=== PATIENT | male | born 1995 | race Caucasian/White ===

== ENCOUNTER 2020-05-12 13:42 | Emergency (ER) | payer MEDICAID ==
[~2020-05-12] VITALS: Ht 172.7 cm; Wt 85.0 kg
[2020-05-12] MEDS ORDERED: LIDOcaine Viscous 15ml cup MM STA (15:28)
[2020-05-12] MEDS ORDERED: PENI500T2 PO (15:30)
[2020-05-12 15:42] VITALS: BP 139/96
== END 2020-05-12 15:44 | disposition home or self-care (01) ==
LOC: ER 13:43
DX: J02.9 Acute pharyngitis, unspecified (principal); Z79.899 Other long term (current) drug therapy
CPT/HCPCS: 99283

== ENCOUNTER 2020-07-27 11:03 | Emergency (ER) | payer MEDICAID ==
[~2020-07-27] VITALS: Ht 172.7 cm; Wt 85.3 kg
[2020-07-27] MEDS ORDERED: famotidine/PF 10 mg/ml inj IV ONE (12:15)
[2020-07-27] MEDS ORDERED: pantoprazole 40 MG vial IV ONE (12:15)
[2020-07-27 12:31] LABS: BASOPHILS % (AUTO) 0.2 % (0-1); EOSINOPHILS # (AUTO) 0.3 X10'3 (0-0.9); HEMATOCRIT 47.3 % (42.0-52.0); HEMOGLOBIN 15.7 g/dl (14.0-17.9); LYMPHOCYTES # (AUTO) 2.7 X10'3 (1.1-4.8); LYMPHOCYTES % (AUTO) 42.4 % (21-51); MEAN CORPUSCULAR HEMOGLOBIN 30.1 PG (27.0-31.0); MEAN CORPUSCULAR HGB CONC 33.3 g/dL (33.0-36.5); MEAN CORPUSCULAR VOLUME 90.3 FL (78-98); MEAN PLATELET VOLUME 8.8 FL (7.4-10.4); MONOCYTES # (AUTO) 0.5 X10'3 (0-0.9); MONOCYTES % (AUTO) 8.3 % (2-12); NEUTROPHILS # (AUTO) 2.8 X10'3 (1.8-7.7); NEUTROPHILS % (AUTO) 44.1 % (42-75); PLATELET COUNT 234 X10'3 (140-440); RED BLOOD COUNT 5.23 X10'6 (4.70-6.10); RED CELL DISTRIBUTION WIDTH 13.3 % (11.5-14.5); WHITE BLOOD COUNT 6.3 X10'3 (4.5-11.0)
[2020-07-27 12:45] LABS: ALANINE AMINOTRANSFERASE 17 U/L (12-78); ALBUMIN 3.9 G/DL (3.4-5.0); ALBUMIN/GLOBULIN RATIO 1.3 (1.1-1.5); ALKALINE PHOSPHATASE 95 IU/L (46-116); ANION GAP 5 (8-16); ASPARTATE AMINO TRANSFERASE 19 U/L (10-37); BILIRUBIN,TOTAL 0.5 MG/DL (0.1-1.0); BLOOD UREA NITROGEN 13 MG/DL (7-18); BUN/CREATININE RATIO 12.1 (5.4-32.0); CALCIUM 8.7 MG/DL (8.5-10.1); CHLORIDE 103 MMOL/L (99-107); CREATININE 1.07 MG/DL (0.60-1.10); GLUCOSE 92 MG/DL (70-104); LIPASE 116 U/L (73-393); POTASSIUM 3.3 MMOL/L (3.5-5.1); SODIUM 139 MMOL/L (135-145); TOTAL CARBON DIOXIDE 30.7 MMOL/L (24-32); TOTAL PROTEIN 6.9 G/DL (6.4-8.2); eGFR 84 ML/MIN
[2020-07-27] MEDS ORDERED: potassium Cl 20 mEq SR tablet PO STA (13:00)
[2020-07-27] MEDS ORDERED: SUCR1TAB34 PO (13:01)
[2020-07-27] MEDS ORDERED: OMEP20CA15 PO (13:01)
[2020-07-27] MEDS ORDERED: FAMO20TA44 PO (13:01)
[2020-07-27 13:24] VITALS: BP 121/83
== END 2020-07-27 13:26 | disposition home or self-care (01) ==
LOC: ER 11:04
DX: K29.70 Gastritis, unspecified, without bleeding (principal); Z79.899 Other long term (current) drug therapy
CPT/HCPCS: 36415; 80053; 83690; 84484; 85025; 93005; 96374; 96375; 99284; C9113; J3490

== ENCOUNTER 2020-08-02 11:17 | Emergency (ER) | payer MEDICAID ==
[~2020-08-02] VITALS: Ht 175.3 cm; Wt 85.5 kg
[~2020-08-02 11:17] MED LIST: FAMO20TA44 PO; OMEP20CA15 PO; SUCR1TAB34 PO
[2020-08-02 11:30] VITALS: BP 121/77
[2020-08-02] MEDS ORDERED: EMTR1TAB12 PO (12:42)
[2020-08-02] MEDS ORDERED: RALT400T PO (12:42)
[2020-08-02 13:10] LABS: ALBUMIN 4.3 G/DL (3.4-5.0); ANION GAP 7 (8-16); BLOOD UREA NITROGEN 11 MG/DL (7-18); BUN/CREATININE RATIO 10.9 (5.4-32.0); CALCIUM 9.6 MG/DL (8.5-10.1); CHLORIDE 103 MMOL/L (99-107); CREATININE 1.01 MG/DL (0.60-1.10); GLUCOSE 81 MG/DL (70-104); POTASSIUM 3.8 MMOL/L (3.5-5.1); SODIUM 138 MMOL/L (135-145); TOTAL CARBON DIOXIDE 28.2 MMOL/L (24-32); eGFR 89 ML/MIN
[2020-08-02 13:27] LABS: HIV ANTIBODY 1&2 RAPID NON-REACTIVE (Neg)
== END 2020-08-02 13:00 | disposition home or self-care (01) ==
LOC: ER 11:18
DX: Z00.00 Encounter for general adult medical examination without abnormal findings (principal); Z79.899 Other long term (current) drug therapy
CPT/HCPCS: 36415; 80048; 86703; 99283

== ENCOUNTER 2020-09-08 00:37 | Emergency (ER) | payer MEDICAID ==
[~2020-09-08] VITALS: Ht 175.3 cm; Wt 80.0 kg
[~2020-09-08 00:37] MED LIST changes: +EMTR1TAB12 PO; +RALT400T PO
[2020-09-08 01:11] VITALS: BP 132/84
== END 2020-09-08 02:00 | disposition home or self-care (01) ==
LOC: ER 00:38
DX: J06.9 Acute upper respiratory infection, unspecified (principal); R05 Cough; R11.0 Nausea; R10.84 Generalized abdominal pain; Z20.828 Contact with and (suspected) exposure to other viral communicable diseases; Z79.899 Other long term (current) drug therapy
CPT/HCPCS: 36415; 87635; 99283

== ENCOUNTER 2021-03-17 17:51 | Emergency (ER) | payer MEDICAID ==
[~2021-03-17] VITALS: Ht 172.7 cm; Wt 84.5 kg
[2021-03-17 17:57] VITALS: BP 122/75
== END 2021-03-17 19:00 | disposition left against medical advice (07) ==
LOC: ER 17:51
DX: K08.89 Other specified disorders of teeth and supporting structures (principal); Z53.21 Procedure and treatment not carried out due to patient leaving prior to being seen by health care provider

== ENCOUNTER 2022-11-23 16:09 | Emergency (ER) | payer MEDICAID ==
[~2022-11-23] VITALS: Ht 172.7 cm; Wt 80.0 kg
[2022-11-23 16:13] VITALS: BP 140/84
== END 2022-11-23 17:55 | disposition home or self-care (01) ==
LOC: ER 16:09
DX: S01.01XD Laceration without foreign body of scalp, subsequent encounter (principal); Z48.00 Encounter for change or removal of nonsurgical wound dressing; Y04.8XXD Assault by other bodily force, subsequent encounter; Z79.899 Other long term (current) drug therapy
CPT/HCPCS: 99281

== ENCOUNTER 2023-03-25 15:02 | Emergency (ER) | payer MEDICAID ==
[~2023-03-25] VITALS: Ht 175.3 cm; Wt 81.0 kg
[2023-03-25 15:33] VITALS: BP 119/82
== END 2023-03-25 17:06 | disposition home or self-care (01) ==
LOC: ER 15:03
DX: M79.641 Pain in right hand (principal); F17.200 Nicotine dependence, unspecified, uncomplicated; Z79.899 Other long term (current) drug therapy
CPT/HCPCS: 29125; 73130; 99283

== ENCOUNTER 2023-04-16 08:23 | Emergency (ER) | payer MEDICAID ==
[~2023-04-16] VITALS: Ht 172.7 cm; Wt 81.0 kg
[2023-04-16 08:34] VITALS: BP 126/63
[2023-04-16] MEDS ORDERED: IBUP-1986 PO (09:23)
== END 2023-04-16 09:33 | disposition home or self-care (01) ==
LOC: ER 08:24
DX: M79.601 Pain in right arm (principal); Z79.899 Other long term (current) drug therapy; W19.XXXA Unspecified fall, initial encounter; Y93.89 Activity, other specified; Y92.89 Other specified places as the place of occurrence of the external cause; Y99.8 Other external cause status
CPT/HCPCS: 73130; 99283; A6449

== ENCOUNTER 2023-08-25 12:28 | Emergency (ER) | payer MEDICAID ==
[~2023-08-25] VITALS: Ht 172.7 cm; Wt 81.8 kg
[~2023-08-25 12:28] MED LIST changes: +IBUP-1986 PO
[2023-08-25 12:37] VITALS: BP 116/86; PULSE 95; RESP 18; TEMP 97.5; O2SAT 95
== END 2023-08-25 20:23 | disposition left against medical advice (07) ==
LOC: ER 12:29
DX: R07.89 Other chest pain (principal); Z53.21 Procedure and treatment not carried out due to patient leaving prior to being seen by health care provider
CPT/HCPCS: 99281

== ENCOUNTER 2024-02-13 06:29 | Emergency (ER) | payer MEDICAID ==
[~2024-02-13] VITALS: Ht 175.3 cm; Wt 87.0 kg
[2024-02-13 06:41] VITALS: BP 115/72; PULSE 72; RESP 18; TEMP 98.3; O2SAT 96
[2024-02-13] MEDS ORDERED: MUPI22OI30 TOP (08:05)
== END 2024-02-13 08:22 | disposition home or self-care (01) ==
LOC: ER 06:29
DX: S80.812A Abrasion, left lower leg, initial encounter (principal); Z79.899 Other long term (current) drug therapy; Z79.1 Long term (current) use of non-steroidal anti-inflammatories (NSAID); W19.XXXA Unspecified fall, initial encounter; Y93.64 Activity, baseball; Y92.89 Other specified places as the place of occurrence of the external cause; Y99.8 Other external cause status
CPT/HCPCS: 99281

== ENCOUNTER 2025-01-31 14:59 | Emergency (ER) | payer MEDICAID ==
[~2025-01-31] VITALS: Ht 172.7 cm; Wt 88.5 kg
[2025-01-31] MEDS ORDERED: CLOT30CR19 TOP (15:44)
[2025-01-31 16:05] VITALS: BP 131/79; PULSE 83; RESP 17; TEMP 98.6; O2SAT 99
== END 2025-01-31 15:54 | disposition home or self-care (01) ==
LOC: ER 14:59
DX: N48.1 Balanitis (principal); Z79.899 Other long term (current) drug therapy; Z79.1 Long term (current) use of non-steroidal anti-inflammatories (NSAID)
CPT/HCPCS: 82948; 99282; 99283

== ENCOUNTER 2025-05-09 19:57 | Emergency (ER) | payer MEDICAID ==
[~2025-05-09] VITALS: Ht 177.8 cm; Wt 94.0 kg
[~2025-05-09 19:57] MED LIST changes: +CLOT30CR19 TOP
[2025-05-09 20:05] VITALS: BP 133/84; PULSE 102; RESP 18; O2SAT 96
[2025-05-09] MEDS: LIDOcaine 1% W/epiNEPHrine 1:100,000 20ml vial SQ STA (20:17)
--- NOTE | 2025-05-09 21:24 | RADIOLOGY REPORT ---
EXAM: DI HAND, COMPLETE (3VW MIN) REASON FOR EXAM: hand trauma TECHNIQUE: PA, lateral and oblique views of the right hand are submitted for review. COMPARISON: HAND, COMPLETE (3VW MIN) on DOS: 04/16/23, HAND, COMPLETE (3VW MIN) on DOS: 03/25/23 FINDINGS: The bones demonstrate normal mineralization. There is plate and screw fixation of the 4th a nd 5th metacarpals. There is old healed fracture of the 2nd metacarpal. The joint spaces are maintain ed. the soft tissues are grossly unremarkable IMPRESSION: No acute fracture or dislocation.
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
[2025-05-09] MEDS ORDERED: CEPH-585 PO (21:43)
[2025-05-09] MEDS: cephalexin 250mg capsule PO STA (21:49)
[2025-05-10] MEDS ORDERED: ACYC-126 PO (04:45)
[2025-05-10] MEDS ORDERED: RISP-31 PO (04:45)
[2025-05-10] MEDS ORDERED: NO HOME MEDS (09:10)
== END 2025-05-09 21:52 | disposition home or self-care (01) ==
LOC: ER 19:57
DX: S51.811A Laceration without foreign body of right forearm, initial encounter (principal); Z79.899 Other long term (current) drug therapy; W25.XXXA Contact with sharp glass, initial encounter; Y93.89 Activity, other specified; Y92.89 Other specified places as the place of occurrence of the external cause; Y99.8 Other external cause status
CPT/HCPCS: 12004; 73130; 99283; A6258; A6449

== ENCOUNTER → 2025-05-10 | Emergency (ER) | payer MEDICAID ==
[~2025-05-10] VITALS: Ht 170.2 cm; Wt 82.7 kg
[~2025-05-10] MED LIST changes: +ACYC-126 PO; +CEPH-585 PO; +NO HOME MEDS; +RISP-31 PO
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
[2025-05-10 04:55] LABS: BASOPHILS % (AUTO) 0.1 % (0-1); EOSINOPHILS % (AUTO) 0 % (0-6); HEMATOCRIT 44.6 % (42.0-52.0); HEMOGLOBIN 15.3 g/dl (14.0-17.9); LYMPHOCYTES # (AUTO) 1.3 X10'3 (1.1-4.8); MEAN CORPUSCULAR HEMOGLOBIN 30.5 PG (27.0-31.0); MEAN CORPUSCULAR HGB CONC 34.2 g/dL (33.0-36.5); MEAN CORPUSCULAR VOLUME 89.2 FL (78-98); MEAN PLATELET VOLUME 9.2 FL (7.4-10.4); MONOCYTES # (AUTO) 0.8 X10'3 (0-0.9); MONOCYTES % (AUTO) 5.7 % (2-12); NEUTROPHILS # (AUTO) 12.2 X10'3 (1.8-7.7); NEUTROPHILS % (AUTO) 85.2 % (42-75); PLATELET COUNT 291 X10'3 (140-440); RED BLOOD COUNT 5.01 X10'6 (4.70-6.10); RED CELL DISTRIBUTION WIDTH 13.1 % (11.5-14.5); WHITE BLOOD COUNT 14.3 X10'3 (4.5-11.0)
[2025-05-10 05:17] LABS: ALBUMIN 3.9 G/DL (3.4-5.0); ANION GAP 9 (8-16); BLOOD UREA NITROGEN 10 MG/DL (7-18); BUN/CREATININE RATIO 8.2 (10.0-20.0); CHLORIDE 103 MMOL/L (99-107); CREATININE 1.22 MG/DL (0.60-1.10); ETHANOL 216 MG/DL (<10); GLUCOSE 98 MG/DL (70-104); POTASSIUM 3.6 MMOL/L (3.5-5.1); SODIUM 141 MMOL/L (135-145); TOTAL CARBON DIOXIDE 29.5 MMOL/L (24-32); eCRCL 82 ML/MIN; eGFR 69 ML/MIN
[2025-05-10] MEDS: acetaminophen 325mg tablet PO ONE (08:33)
[2025-05-10 08:53] LABS: BILIRUBIN,URINE NEGATIVE (Neg); CLARITY,URINE CLEAR (Clear); COLOR,URINE YELLOW (Yellow); GLUCOSE, URINE NEGATIVE (Neg); KETONES,URINE NEGATIVE (Neg); LEUKOCYTE ESTERASE ,URINE NEGATIVE (Neg); NITRITES, URINE NEGATIVE (Neg); OCCULT BLOOD,URINE NEGATIVE (Neg); PROTEIN,URINE NEGATIVE (Neg); UROBILINOGEN,URINE 0.2 E.U/dL (0.2-1.0)
[2025-05-10 08:58] LABS: UA COLLECTION TYPE CLN CATCH MIDSTREAM
[2025-05-10 09:08] LABS: URINE AMPHETAMINE SCREEN NEGATIVE (Neg); URINE BARBITUATE SCREEN NEGATIVE (Neg); URINE BENZODIAZEPINES SCREEN NEGATIVE (Neg); URINE CANNABINOID SCREEN NEGATIVE (Neg); URINE COCAINE SCREEN NEGATIVE (Neg); URINE METHADONE SCREEN NEGATIVE (Neg); URINE OPIATE SCREEN NEGATIVE (Neg); URINE PHENCYCLIDINE SCREEN NEGATIVE (Neg)
[2025-05-10 09:59] LABS: ETHANOL 103 MG/DL (<10)
[2025-05-10] MEDS: LORazepam 1 MG tablet PO PRN (15:43)
[2025-05-10 17:40] VITALS: BP 121/68; PULSE 57; RESP 15; TEMP 98.1; O2SAT 96
[2025-05-10 18:05] LABS: ALANINE AMINOTRANSFERASE 28 U/L (12-78); ALBUMIN 3.7 G/DL (3.4-5.0); ALBUMIN/GLOBULIN RATIO 1.2 (1.1-1.5); ALKALINE PHOSPHATASE 87 IU/L (46-116); ASPARTATE AMINO TRANSFERASE 32 U/L (10-37); BILIRUBIN,DIRECT 0.1 MG/DL (0-0.3); BILIRUBIN,TOTAL 0.5 MG/DL (0.1-1.0); TOTAL PROTEIN 6.7 G/DL (6.4-8.2)
[2025-05-10] MEDS: ibuprofen tablet 400 MG TABLET PO ONE (19:45)
== END ==
LOC: ER 03:00
DX: S41.119D Laceration without foreign body of unspecified upper arm, subsequent encounter (principal); R45.851 Suicidal ideations; F32.A Depression, unspecified; F17.200 Nicotine dependence, unspecified, uncomplicated; F10.129 Alcohol abuse with intoxication, unspecified; Y90.9 Presence of alcohol in blood, level not specified; X58.XXXD Exposure to other specified factors, subsequent encounter; Z20.822 Contact with and (suspected) exposure to COVID-19
CPT/HCPCS: 36415; 80048; 80076; 80305; 80320; 81003; 84443; 85025; 87811; 99285

== ENCOUNTER 2025-05-24 10:12 | Emergency (ER) | payer MEDICAID ==
[~2025-05-24] VITALS: Ht 175.3 cm; Wt 93.2 kg
[~2025-05-24 10:12] MED LIST changes: -ACYC-126 PO; -CEPH-585 PO; -CLOT30CR19 TOP; -EMTR1TAB12 PO; -FAMO20TA44 PO; -IBUP-1986 PO; -OMEP20CA15 PO; -RALT400T PO; -RISP-31 PO; -SUCR1TAB34 PO
[2025-05-24 10:19] VITALS: BP 118/75; PULSE 89; RESP 18; TEMP 97.6; O2SAT 96
--- NOTE | 2025-05-24 11:25 | Physician Documentation ---
History of Present Illness ~ Chief Complaint: Abscess Stated Complaint: TESTICULAR CYST Time Seen by MD: 11:08 Primary Medical Doctor: FREDY URENA Source: patient Mode of Arrival: POV Exam Limitations: no limitations HPI 30-year-old male who is here with right testicular pain since this am. Pain is constant. He reports he was diagnosed with a cyst of this testicle four years ago. States he never had any pain in the area until this morning. He states he is not sure if the testicle is read as she states I did not look of the area I just came straight here. He denies any pain in his groin, enlarged lymph nodes, penile discharge. Tetanus Within 5 Years: Yes Medication Reconciliation Allergies: Coded Allergies: No Known Allergies (Unverified , 05/10/25) Scheduled Doxycycline Monohydrate (Doxycycline Monohydrate), 1 CAP PO Q12H Miscellaneous Medications Home Med List (No Home Medications), (Reported) Past Medical History Past Medical History: No Pertinent History Past Surgical History: no surgical history Alcohol Use: None Drug Use: none Lives In: Home Occupation: employed Review of Systems All Other Systems at this time: Reviewed and Negative Physical Exam Vital Signs: Temperature: 97.6, Source: Oral, Heart Rate: 89, Respiratory Rate: 18, BP: 118/75, Pulse Oximetry: 96, Weight: 93.180 Physical Exam GENERAL: Alert, no acute distress. HEENT: NCAT, EOMI, PERRL, normal oropharynx, moist oral mucosa. NECK: Supple, trachea midline. CARDIAC: Regular rate and rhythm, no murmurs, rubs, or gallops. Equal distal pulses. No lower extremity edema, cap refill less than 2 seconds. RESPIRATORY: Equal breath sounds, clear to auscultation bilaterally, no respiratory distress. : RIGHT TESTICLE MILDLY EDEMATOUS AT PROXIMAL ASPECT OF TESTICLE, OTHERWISE NORMAL INSPECTION, NO ERYTHEMA OR LESIONS. AREA IS TTP. NO INGUINAL LAD. MUSCULOSKELETAL: Normal range of motion, nontender, no swelling. Normal gait. NEUROLOGICAL: Awake, alert, and oriented x 3. SKIN: Warm/dry, no pallor, no rash. PSYCH: Alert and appropriate. Affect congruent with mood. Speech is clear. Good eye contact. Procedures Procedures U/S NEGATIVE FOR TORSION, SHOWED BILATERAL HYDROCELES Progress Results/Orders Results/Orders Orders - DEMETRI ROBERTS Testic/W/Duplex (05/24/25 11:15) Chlam/Gc Amp Ur (05/24/25 12:09) Completed Orders - DEMETRI ROBERTS Us Testic/W/Duplex (05/24/25 11:15) Ceftriaxone 500 Im W/Lidocaine (Rocephin (05/24/25 12:10) Vital Signs 05/24/25 10:19 Temp 97.6 Pulse 89 Resp 18 B/P (MAP) 118/75 Pulse Ox 96 Laboratory Tests Test 05/24/25 12:17 Medical Decision Making Differential Dx:Considerations: Include: Abscess, Bacteremia, Cellulitis, Erysipelas, Felon, Gas gangrene, Hidrademitis suppurativa, Impetigo, Lymphangitis, Osteromyelitis, Paronychia, Septicemia Departure Time of Disposition: 12:04 Disposition: HOME / SELF CARE / HOMELESS Impression: Primary Impression: Testicular pain, right Additional Impressions: Epididymitis, right Risk for sexually transmitted infection Condition: Stable Discharge Instructions: Epididymitis Additional Instructions: ANTIBIOTIC SENT TO PHARMACY WE ALSO GAVE YOU AN INJECTION OF AN ANTIBIOTIC HERE WE ARE COVERING YOU FOR GONORRHEA AND CHLAMYDIA WHICH CAN BE THE UNDERLYING CAUSE OF EPIDIDIMYITIS F/U WITH PCP NEXT WEEK Referrals: NO PRIMARY CARE PROVIDER (PCP) Prescriptions Doxycycline Monohydrate (Doxycycline Monohydrate) 100 Mg Capsule 1 CAP PO Q12H for 10 Days, #20 CAP Prov: DEMETRI ROBERTS 05/24/25 Education Educated: Patient Educated regarding: diagnosis, treatment, need for follow up Signature Scribe Signature: X Attestation: DEMETRI MALDONADO May 24, 2025 11:25
[2025-05-24] MEDS ORDERED: DOXY-460 PO (12:05)
--- NOTE | 2025-05-24 12:24 | RADIOLOGY REPORT ---
ULTRASOUND OF SCROTUM AND CONTENTS. INDICATION: right testicular pain COMPARISON: None TECHNIQUE: Multiple real-time grayscale sonographic and color and duplex Doppler images of the scrotu m and its contents were obtained. FINDINGS: Right testicle measures 2.1 x 4.4 and left testicle measures 2.8 x 4.0 cm No torsion Mild right-sided hydrocele Right epididymal cyst measuring 1.8 cm Prominent right epididymis Normal left epididymis Increased vascularity right epididymis IMPRESSION: 1. Findings consistent with right-sided epididymitis
[2025-05-24] MEDS: CefTRIAXone 500MG IM Kit w/LIDOcaine IM ONE (12:44)
== END 2025-05-24 12:48 | disposition home or self-care (01) ==
LOC: ER 10:13
DX: N45.1 Epididymitis (principal); N50.811 Right testicular pain
CPT/HCPCS: 36415; 76870; 87491; 87591; 93976; 96372; 99285; J0696